=== PATIENT | female | born 1955 | race Caucasian/White ===

== ENCOUNTER 2025-05-17 19:05 | Emergency (ER) | payer SELFPAY ==
[2025-05-17 19:08] VITALS: BP 172/86
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
== END 2025-05-17 20:31 | disposition home or self-care (01) ==
LOC: EMR 19:05
PROVIDERS: EMERGENCY PHYSICIAN Student in an Organized Health Care Education/Training Program; FAMILY PHYSICIAN Internal Medicine
DX: M79.18 Myalgia, other site (principal); V89.2XXA Person injured in unspecified motor-vehicle accident, traffic, initial encounter; Y92.410 Unspecified street and highway as the place of occurrence of the external cause; I10 Essential (primary) hypertension; E03.9 Hypothyroidism, unspecified; Z83.3 Family history of diabetes mellitus
CPT/HCPCS: 99283; 73030